=== PATIENT | female | born 1970 | race Caucasian/White ===

== ENCOUNTER → 2021-02-16 | Outpatient (CLI) | payer MEDICAID ==
--- NOTE | 2021-02-16 16:01 | RAD ---
EXAM: Right shoulder, 3 views HISTORY: Pain. COMPARISON: None. FINDINGS: 3 views of the right shoulder obtained. There is no fracture, dislocation or subluxation. T here is minimal marginal glenoid and humeral head spurring. The acromioclavicular joint is intact. IMPRESSION: 1. No acute osseous finding. 2. Minimal glenohumeral joint osteoarthritis. Electronically signed by: Savanah Go MD (02/16/2021 3:58 PM) [facility]
== END ==
LOC: RAD 15:42
PROVIDERS: ATTEND Family Medicine
DX: M19.011 Primary osteoarthritis, right shoulder (principal)
CPT/HCPCS: 73030

== ENCOUNTER → 2021-06-02 | Outpatient (CLI) | payer MEDICAID ==
--- NOTE | 2021-06-02 10:43 | RAD ---
EXAM: Abdomen sonogram. HISTORY: Elevated liver function laboratory values. TECHNIQUE: Sonographic imaging of the abdomen was performed. COMPARISON: None. FINDINGS: The liver is enlarged. There is hepatic steatosis. No focal hepatic lesion is seen. The com mon bile duct is mildly dilated to a caliber of 7 mm. This is likely due to reservoir effect status p ost cholecystectomy. The right kidney is unremarkable. The pancreas is echogenic. No focal pancreatic lesion is seen. The inferior vena cava is obscured due to bowel gas and body habitus. IMPRESSION: 1. Hepatomegaly and hepatic steatosis. 2. Cholecystectomy. Electronically signed by: Savanah Go MD (06/02/2021 10:41 AM) [id number]
[2021-06-04 20:12] LABS: ANA INTERP Negative (.)
[2021-06-05 14:11] LABS: MITOCHONDRIAL ABDY <20.0 Units (0.0-20.0); SMOOTH MUSCLE AB 6 Units (0-19)
== END ==
LOC: US 09:50
PROVIDERS: ATTEND Internal Medicine Gastroenterology
DX: R16.0 Hepatomegaly, not elsewhere classified (principal); K76.0 Fatty (change of) liver, not elsewhere classified; K83.8 Other specified diseases of biliary tract; Z90.49 Acquired absence of other specified parts of digestive tract
CPT/HCPCS: 36415; 76705; 82728; 83516; 83540; 83550; 86038